=== PATIENT | male | born 1960 | race Native Hawaiian/Other Pacific Islander ===

== ENCOUNTER 2017-12-25 09:20 | Inpatient (IN) | payer OTHER ==
--- NOTE | 2017-12-25 10:09 | RAD ---
Date of service: 12/25/2017 HISTORY: SOB COMPARISON: No prior. TECHNIQUE: Chest PA and lateral FINDINGS: LUNGS: No active pulmonary disease. PLEURA: No significant pleural effusion identified. No pneumothorax apparent. CARDIOVASCULAR: Normal. OSSEOUS STRUCTURES: Degenerative changes. VISUALIZED UPPER ABDOMEN: Normal. OTHER FINDINGS: None. IMPRESSION: No active disease.
--- NOTE | 2017-12-25 10:17 | C.PDOC ---
History Of Present Illness 57 year old male patient presents to the ER for a right hernia operation for a surgery at 1300 in the OR. Patient does not have any other complaints at this time. Time Seen by Provider: 12/25/17 09:23 Chief Complaint (Nursing): Medical Clearance History Per: Patient History/Exam Limitations: no limitations Onset/Duration Of Symptoms: Hrs Current Symptoms Are (Timing): Still Present Past Medical History Reviewed: Historical Data, Nursing Documentation, Vital Signs Vital Signs: Last Vital Signs Temp 98.1 F 12/25/17 12:50 Pulse 68 12/25/17 15:30 Resp 13 12/25/17 15:30 BP 165/93 H 12/25/17 15:30 Pulse Ox 98 12/25/17 16:24 - Medical History PMH: HTN Family History: States: No Known Family Hx - Social History Hx Alcohol Use: No Hx Substance Use: No - Immunization History Hx Tetanus Toxoid Vaccination: No Hx Influenza Vaccination: No Hx Pneumococcal Vaccination: No Review Of Systems Except As Marked, All Systems Reviewed And Found Negative. Constitutional: Negative for: Fever, Chills Gastrointestinal: Positive for: Other (hernia). Negative for: Nausea, Vomiting , Abdominal Pain Physical Exam - Physical Exam Appears: Non-toxic, No Acute Distress Skin: Normal Color, Warm, Dry Head: Atraumatic, Normacephalic Eye(s): bilateral: Normal Inspection Nose: Normal Oral Mucosa: Moist Throat: Normal Neck: Normal ROM, Supple Cardiovascular: Rhythm Regular Respiratory: Normal Breath Sounds, No Rales, No Rhonchi, No Wheezing Gastrointestinal/Abdominal: Soft, No Tenderness Back: No CVA Tenderness Extremity: Normal ROM (x4) Neurological/Psych: Oriented x3, Normal Speech Gait: Steady ED Course And Treatment - Laboratory Results Result Diagrams: 12/25/17 10:20 12/25/17 10:20 Lab Interpretation: Normal ECG: Interpreted By Me ECG Rhythm: Sinus Rhythm ECG Interpretation: Normal Rate From EC O2 Sat by Pulse Oximetry: 98 (RA) Pulse Ox Interpretation: Normal - Radiology CXR: Viewed By Me, Read By Radiologist CXR Interpretation: Yes: No Acute Disease Progress Note: Labs, X-Ray, EKG ordered. admitted to [facility] for hernia surgery Reassessment Condition: Unchanged Medical Decision Making Medical Decision Making: Impression: right sided hernia Plans: -- blood work -- electrocardiogram -- x-ray of chest -- IV fluids Disposition Discussed With Dr.: Alberto Maciel Doctor Will See Patient In The: Hospital - Disposition Disposition: HOSPITALIZED Disposition Time: 12:35 Condition: STABLE - POA Present On Arrival: None - Clinical Impression Clinical Impression: Hernia - PA / RESIDENT CARE TECHNICIAN / Resident Statement MD/DO has reviewed & agrees with the documentation as recorded. - Scribe Statement The provider has reviewed the documentation as recorded by the Scribe Marybel Veloz All medical record entries made by the Scribe were at my direction and personally dictated by me. I have reviewed the chart and agree that the record accurately reflects my personal performance of the history, physical exam, medical decision making, and the department course for this patient. I have also personally directed, reviewed, and agree with the discharge instructions and disposition. Decision To Admit - Pt Status Changed To: Hospital Disposition Of: SDS- Endo,OR,Cath,IR - . Bed Request Type: Same Day Surgery Admitting Physician: Alberto Maciel Patient Diagnosis: Hernia
[2017-12-25 10:27] LABS: BASO # 0.1 K/uL (0.0-0.2); BASO % 0.6 % (0.0-2.0); EOS # 0.2 K/uL (0.0-0.7); EOS % 2.1 % (0.0-4.0); HEMOGLOBIN 14.2 g/dL (12.0-18.0); LYMPH # 2.8 K/uL (1.0-4.3); LYMPH % 25.9 % (20.0-40.0); MEAN CELL VOLUME 83.9 fL (80.0-94.0); MEAN CORPUSCULAR HGB CONC 33.4 g/dL (33.0-37.0); MONO # 0.7 K/uL (0.0-0.8); MONO % 6.4 % (0.0-10.0); NRBC % 0.1 % (0.0-2.0); RBC 5.07 Mil/uL (4.40-5.90); RED CELL DISTRIBUTION WIDTH 14.5 % (11.5-14.5); WHITE BLOOD COUNT 10.8 K/uL (4.8-10.8)
[2017-12-25 10:32] LABS: INR 1.1
[2017-12-25 10:41] LABS: ALB/GLOB RATIO 1.4 (1.0-2.1); ALBUMIN 4.4 g/dL (3.5-5.0); ALT/SGPT 29 U/L (21-72); AST/SGOT 22 U/L (17-59); BLOOD UREA NITROGEN 15 mg/dL (9-20); CALCIUM 9.5 mg/dl (8.6-10.4); GFR AFRICAN-AMERICAN > 60; GFR NON-AFRICAN AMERICAN > 60
[2017-12-25] MEDS: Sodium Chloride 0.9% 1,000 ML IV ONE (11:00)
[2017-12-25 11:15] LABS: URINE BILIRUBIN NEGATIVE (NEGATIVE); URINE BLOOD NEGATIVE (NEGATIVE); URINE CLARITY Clear (Clear); URINE COLOR Yellow (YELLOW); URINE GLUCOSE (UA) NORMAL (Normal); URINE LEUKOCYTE ESTERASE NEG Leu/uL (Negative); URINE PROTEIN NEGATIVE (NEGATIVE); URINE UROBILINOGEN NORMAL mg/dL (0.2-1.0)
[2017-12-25] MEDS ORDERED: Propofol 10 mg/ml Inj (20 ML) ONE (11:29)
[2017-12-25] MEDS ORDERED: Midazolam 2 MG/2 ML VIAL ONE (11:29)
[2017-12-25] MEDS ORDERED: Phenylephrine 10 mg/ml Inj ONE (11:31)
[2017-12-25] MEDS ORDERED: ceFAZolin 1 gm in NS 1 GM/100 ML BAG IVPB ONE (11:35)
[2017-12-25] MEDS ORDERED: Bupivacaine 0.25% 20 ML INJ IJ ONE (12:01)
[2017-12-25] MEDS ORDERED: ceFAZolin IV 1 gm in Dextrose 1 GM/50 ML BAG IVPB ONE (12:12)
[2017-12-25] MEDS ORDERED: Oxycodone/Acetaminophen 5/325 mg Tab PO PRN (13:05)
[2017-12-25] MEDS: HYDROmorphone 0.5 mg/0.5 ml ISec IVP PRN ×2 (13:35→14:55)
[2017-12-25] MEDS ORDERED: Lactated Ringer's 1,000 ML IV ONE (14:15)
[2017-12-25] MEDS ORDERED: Iodixanol 320 MG/ML 100 ML BOTTLE IV ONE (16:53)
[2017-12-25] MEDS: (Novolin R) Insulin Human Regular 100 units/ml vial SC SCH ×2 (17:36→21:54)
--- NOTE | 2017-12-25 17:49 | CT ---
PROCEDURE: CT Angiography Chest, Abdomen and Pelvis with and without intravenous contrast HISTORY: Evaluation of AAA COMPARISON: None. TECHNIQUE: Contiguous axial images of the chest, abdomen and pelvis were obtained in the phase of aortic enhancement. A noncontrast enhanced CT of the chest was also obtained to evaluate for possible intramural thrombus. Coronal and sagittal reformats were generated. IV dose administered: 100 mL Visipaque 320 Radiation dose: Total exam DLP = 868.9 mGy-cm. This CT exam was performed using one or more of the following dose reduction techniques: Automated exposure control, adjustment of the mA and/or kV according to patient size, and/or use of iterative reconstruction technique. FINDINGS: AORTA (CHEST AND ABDOMEN): Ascending aortic ectasia measuring up to 3.5 cm. Fusiform infrarenal abdominal aortic aneurysm measuring 4.7 x 4.4 cm with anterior intramural thrombus occupying approximately 40 percent of vessel lumen in cross-sectional diameter. The celiac axis, superior mesenteric artery, and the renal arteries are widely patent. Proximal segment of inferior mesenteric artery is non-opacified. The pelvic arteries are unremarkable. LUNGS: Bilateral upper lobe central of emphysema. Bilateral lower lobe atelectasis/scarring. No nodule, mass or consolidation. MEDIASTINUM: Unremarkable. Normal caliber aorta and pulmonary arterial trunk. No aortic dissection. Normal size heart. LYMPH NODES: Unremarkable. PLEURA: Unremarkable. No pneumothorax. No pleural fluid. LIVER: Unremarkable. No gross lesion or ductal dilatation. GALLBLADDER AND BILE DUCTS: Unremarkable. PANCREAS: Unremarkable. No gross lesion or ductal dilatation. SPLEEN: Unremarkable. ADRENALS: Unremarkable. No mass. KIDNEYS AND URETERS: Unremarkable. No hydronephrosis. No solid mass. VASCULATURE: Unremarkable. No aortic aneurysm. STOMACH AND BOWEL: Unremarkable. No obstruction. No gross mural thickening. APPENDIX: Normal appendix. PERITONEUM: Recent right inguinal hernia repair with postsurgical changes foci of in the right lower quadrant abdominal wall as well as in the inguinal canal. Small fat containing umbilical hernia. LYMPH NODES: Unremarkable. No enlarged lymph nodes. BLADDER: Unremarkable. REPRODUCTIVE: Unremarkable. BONES: No acute fracture. OTHER FINDINGS: None. IMPRESSION: Infrarenal abdominal aortic fusiform aneurysm measuring 4.7 x 4.4 cm with anterior intramural thrombus as described above. 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 Ascending aortic ectasia measuring up to 3.5 cm at the level of the pulmonary artery. Postsurgical changes in the right inguinal region. Additional findings as above.
--- NOTE | 2017-12-25 18:03 | CP.PCM.CON ---
History of Present Illness - History of Present Illness History of Present Illness: COMPREHENSIVE HISTORY & PHYSICAL EXAM Patient is admitted for right inguinal hernia repaired secondary to incarceration. Patient been complaining of right groin pain increased in intensity and severity associated with slight pain. Patient was evaluated by surgery outpatient and diagnosed incarcerated hernia patient is admitted for operation and mesh placement. HPI Patient has history of hypertension history of infrarenal abdominal aortic aneurysm and renal cell carcinoma which patient is going to have partial nephrectomy. PAST HIST. PERSONAL HIST: Smoking. N Alcohol. N Allergy N Travel_- . FAMILY HIST : ROS : Constitutional: Negative for weight change, chills, night sweats, fatigue and usage of assist device. Eyes: Negative for redness, swelling, itching, discharge, vision changes, blurry vision, double vision, glaucoma, cataracts, Ears: Negative for hearing loss, ringing, , tinnitus, vertigo Nose: Negative for rhinorrhea, stuffiness, sniffing, itching, postnasal drip, discoloration, nasal congestion and epistaxis. Throat: Negative for throat clearing, sore throat, hoarseness, difficulty swallowing and difficulty speaking. Respiratory: Negative for cough, , sputum production, chest tightness, wheezing, pleuritic chest pain ,daytime somnolence, chronic cough, hemoptysis, snoring at night, Cardiovascular: Negative for chest pain, palpitations, orthopnea, PND, Edema of legs, leg cramps, angina, claudication, , irregular heartbeat, Neurology: Negative for irritability, muscle weakness, numbness and tingling, seizures, tremors, migraines, slurred speech, syncope, memory loss, mood changes , recurrent headaches Gastrointestinal: Negative for difficulty swallowing, diarrhea, constipation, black stools, rectal bleeding, nausea, flatulence, reflux, poor appetite, changes in bowel habits, abdominal pain Genitourinary: Negative for frequent urination, hematuria, discharge, incontinence, urinary retention, frequent UTI, Psychiatric: Negative for depression, anxiety/panic, suicidal tendencies, Musculoskeletal: Negative for swollen joints, back pain, , neck pain, morning stiffness of joints, . Skin: Negative for rash, ulcers, itching, dry skin and pigmented lesions. P/E: Constitutional: Appears stated age and in no apparent distress. Head: Normocephalic. Ears: External ear canals patent without inflammation. Tympanic membranes intact with normal light reflex and landmark. Eyes: Pupils are central, bilaterally equal, symmetrical and reacts to light with normal movements and no icterus or pallor. Nose: External nares are patent. Mucosa is pink Mouth-Throat: Good general appearance and condition. No post-pharyngeal/oropharyngeal erythema and tonsillar hypertrophy. Good dental hygiene. Neck-Lymphatic: Neck is supple with normal ROM, no thyromegaly, lymph nodes or masses. JVD is normal with no carotid bruit. Lungs: Clear to percussion and auscultation with bilateral normal air entry. Cardiovascular: S1 and S2 are normal with no murmurs, gallops and rub. GI Exam: No hepatomegaly. Abdomen is soft and non-tender. No Organomegaly , masses or hernias are evident and bowel sounds are normal and active. Swelling in the right inguinal region reducible with pain Neurology: Higher function and all cranial nerves intact, with no gross motor or sensory deficit. Superficial and deep reflexes are normal with downwards planters. No cerebellar deficit with normal gait. Musculoskeletal: No tender spots with normal curvature of the spine with no swelling or restricted ROM of the small and large joints. Extremities: Homans sign absent. Intact pulses with no pitting edema, calf tenderness or skin color changes. Skin: No rash, eruptions or abnormal skin pigmentation LAB/RADIOLOGY: ASSESMENT : Incarcerated right inguinal hernia. Infrarenal abdominal aortic aneurysm Renal cell carcinoma PLAN: Current blood test appears normal. Will get echo for left ventricular ejection fraction prior to surgery Past Patient History - Past Social History Smoking Status: Heavy Smoker > 10 Cigarettes Daily - CARDIAC Hx Hypertension: Yes - ENDOCRINE/METABOLIC Hx Diabetes Mellitus Type 2: Yes - HEMATOLOGICAL/ONCOLOGICAL Hx Cancer: Yes (rt kidney) - PSYCHIATRIC Hx Substance Use: No - ANESTHESIA Hx Anesthesia: No Meds Allergies/Adverse Reactions: Allergies Allergy/AdvReac Type Severity Reaction Status Date / Time No Known Allergies Allergy Verified 12/25/17 09:32 - Medications Medications: Current Medications Docusate Sodium (Colace) 100 mg PO BID [facility] Glimepiride (Amaryl) 1 mg PO DAILY [facility] Sodium Chloride (Sodium Chloride 0.45%) 1,000 mls @ 80 mls/hr IV .[id number] [facility] Insulin Human Regular (Novolin R) 0 unit SC ACHS [facility] PRN Reason: Protocol Last Admin: 12/25/17 17:36 Dose: Not Given Lisinopril (Zestril) 20 mg PO DAILY [facility] Metformin HCl (Glucophage) 1,000 mg PO BIDCC [facility] Last Admin: 12/25/17 17:36 Dose: Not Given Ondansetron HCl (Zofran Inj) 4 mg IVP Q6 PRN PRN Reason: Nausea/Vomiting Oxycodone/Acetaminophen (Percocet 5/325 Mg Tab) 2 tab PO Q4H PRN PRN Reason: pain Stop: 12/28/17 13:06 Pantoprazole Sodium (Protonix Inj) 40 mg IVP DAILY [facility] Rosuvastatin Calcium (Crestor) 5 mg PO DAILY [facility] Results - Vital Signs Recent Vital Signs: Last Vital Signs Temp 97.1 F L 12/25/17 16:00 Pulse 79 12/25/17 16:00 Resp 13 12/25/17 16:00 BP 153/95 H 12/25/17 16:00 Pulse Ox 98 12/25/17 16:24 - Labs Result Diagrams: 12/26/17 07:47 12/26/17 07:47 Labs: Laboratory Results - last 24 hr 12/25/17 12/25/17 12/25/17 09:46 10:20 10:20 WBC 10.8 RBC 5.07 Hgb 14.2 Hct 42.5 MCV 83.9 MCH 28.0 MCHC 33.4 RDW 14.5 Plt Count 260 MPV 9.0 Neut % (Auto) 65.0 Lymph % (Auto) 25.9 [place] % (Auto) 6.4 Eos % (Auto) 2.1 Baso % (Auto) 0.6 Neut # (Auto) 7.0 Lymph # (Auto) 2.8 [place] # (Auto) 0.7 Eos # (Auto) 0.2 Baso # (Auto) 0.1 PT INR Sodium 143 Potassium 4.4 Chloride 104 Carbon Dioxide 25 Anion Gap 18 BUN 15 Creatinine 0.7 L Est GFR ( Amer) > 60 Est GFR (Non-Af Amer) > 60 POC Glucose (mg/dL) 113 H Random Glucose 112 H Calcium 9.5 Total Bilirubin 0.5 AST 22 ALT 29 Alkaline Phosphatase 89 Total Protein 7.5 Albumin 4.4 Globulin 3.2 Albumin/Globulin Ratio 1.4 Urine Color Urine Clarity Urine pH Ur Specific [place] Urine Protein Urine Glucose (UA) Urine Ketones Urine Blood Urine Nitrate Urine Bilirubin Urine Urobilinogen Ur Leukocyte Esterase Urine WBC (Auto) Urine RBC (Auto) Blood Type Antibody Screen 12/25/17 12/25/17 12/25/17 10:20 10:20 11:08 WBC RBC Hgb Hct MCV MCH MCHC RDW Plt Count MPV Neut % (Auto) Lymph % (Auto) [place] % (Auto) Eos % (Auto) Baso % (Auto) Neut # (Auto) Lymph # (Auto) [place] # (Auto) Eos # (Auto) Baso # (Auto) PT 12.0 INR 1.1 Sodium Potassium Chloride Carbon Dioxide Anion Gap BUN Creatinine Est GFR ( Amer) Est GFR (Non-Af Amer) POC Glucose (mg/dL) Random Glucose Calcium Total Bilirubin AST ALT Alkaline Phosphatase Total Protein Albumin Globulin Albumin/Globulin Ratio Urine Color Yellow Urine Clarity Clear Urine pH 5.0 Ur Specific [place] 1.016 Urine Protein Negative Urine Glucose (UA) Normal Urine Ketones Negative Urine Blood Negative Urine Nitrate Negative Urine Bilirubin Negative Urine Urobilinogen Normal Ur Leukocyte Esterase Neg Urine WBC (Auto) < 1 Urine RBC (Auto) < 1 Blood Type O NEGATIVE Antibody Screen Negative 12/25/17 15:13 WBC RBC Hgb Hct MCV MCH MCHC RDW Plt Count MPV Neut % (Auto) Lymph % (Auto) [place] % (Auto) Eos % (Auto) Baso % (Auto) Neut # (Auto) Lymph # (Auto) [place] # (Auto) Eos # (Auto) Baso # (Auto) PT INR Sodium Potassium Chloride Carbon Dioxide Anion Gap BUN Creatinine Est GFR ( Amer) Est GFR (Non-Af Amer) POC Glucose (mg/dL) 96 Random Glucose Calcium Total Bilirubin AST ALT Alkaline Phosphatase Total Protein Albumin Globulin Albumin/Globulin Ratio Urine Color Urine Clarity Urine pH Ur Specific [place] Urine Protein Urine Glucose (UA) Urine Ketones Urine Blood Urine Nitrate Urine Bilirubin Urine Urobilinogen Ur Leukocyte Esterase Urine WBC (Auto) Urine RBC (Auto) Blood Type Antibody Screen
[2017-12-25] MEDS: Sodium Chloride 0.45% 1,000 ML IV SCH (18:04)
[2017-12-25 23:15] VITALS: RESP 20
--- NOTE | 2017-12-26 00:26 | OP ---
PROCEDURE DATE: 12/25/2017 PREOPERATIVE DIAGNOSIS: Incarcerated right inguinal hernia. POSTOPERATIVE DIAGNOSIS: Large incarcerated right sliding inguinal hernia. PROCEDURE PERFORMED: 1. Repair of incarcerated sliding right inguinal hernia with mesh. 2. Repair of colonic wall injury. 3. Repair of the testicular artery. SURGEON: Alberto Maciel M.D. ANESTHESIA: General. BLOOD LOSS: 40 mL. POSTOPERATIVE CONDITION: Stable. INDICATIONS FOR SURGERY: This is a 57-year-old male seen in my office yesterday with an increasingly painful incarcerated right inguinal hernia. He was sent to the emergency room, admitted today and taken for an urgent hernia repair. GROSS FINDINGS: The patient had a sliding right inguinal hernia containing portion of colon and small bowel. It was incarcerated. There was no ischemia of the bowel noted, however. DESCRIPTION OF PROCEDURE: The patient was taken to the operating room, general anesthesia was administered. The right groin was prepped and draped. Larger standard right inguinal incision was made. The external oblique aponeurosis was opened. The spermatic cord along with the incarcerated hernia was looped with a Lindsay drain. The sac was found within the cord. A sliding hernia was noted and also a small bowel was noted. During dissection of the sac, an injury to the wall of bowel (colon) was noted, and a TA-30 stapler was used to repair. After the sac was completely dissected free, it was reduced and an extra large ProLoop plug was inserted into the hernia defect. Of note, there was bleeding from the spermatic cord, and an injury to the testicular artery was noted and repaired with 7-0 Prolene. Blood flow was confirmed by Doppler. The hernia plug was sutured in place with interrupted 2-0 Prolene suture. The wound was irrigated with copious amounts of saline solution. It was then closed in layers with heavy Monocryl and skin clips. The patient tolerated the procedure well. Returned to recovery room in stable condition. Alberto Maciel MD
[2017-12-26] MEDS: Sodium Chloride 0.45% 1,000 ML IV SCH ×2 (01:45→05:30)
[2017-12-26] MEDS: Sodium Chloride 0.9% 1,000 ML IV ONE (05:27)
[2017-12-26 07:40] VITALS: BP 152/86; PULSE 81; TEMP 98.8; O2SAT 95
[2017-12-26] MEDS: (Novolin R) Insulin Human Regular 100 units/ml vial SC SCH ×2 (07:44→12:16)
[2017-12-26 07:53] LABS: BASO % 0.3 % (0.0-2.0); EOS # 0.1 K/uL (0.0-0.7); EOS % 0.4 % (0.0-4.0); HEMOGLOBIN 13.6 g/dL (12.0-18.0); LYMPH # 1.3 K/uL (1.0-4.3); LYMPH % 9.4 % (20.0-40.0); MEAN CELL VOLUME 83.5 fL (80.0-94.0); MEAN CORPUSCULAR HEMOGLOBIN 28.3 pg (27.0-31.0); MEAN CORPUSCULAR HGB CONC 33.9 g/dL (33.0-37.0); MEAN PLATELET VOLUME 8.9 fL (7.2-11.7); MONO % 7.6 % (0.0-10.0); NEUT # 11.3 K/uL (1.8-7.0); NEUT % 82.3 % (50.0-75.0); PLATELET COUNT 236 K/uL (130-400); RBC 4.81 Mil/uL (4.40-5.90); WHITE BLOOD COUNT 13.8 K/uL (4.8-10.8)
[2017-12-26 08:22] LABS: ALB/GLOB RATIO 1.4 (1.0-2.1); ALT/SGPT 35 U/L (21-72); AST/SGOT 21 U/L (17-59); BLOOD UREA NITROGEN 9 mg/dL (9-20); CALCIUM 8.9 mg/dl (8.6-10.4); GFR AFRICAN-AMERICAN > 60; GFR NON-AFRICAN AMERICAN > 60
[2017-12-26 09:11] LABS: BASOPHIL 1 % (0-2); EOSINOPHIL 1 % (0-4); MONOCYTE 10 % (0-10); NEUTROPHIL 80 % (50-75); PLATELET ESTIMATE NORMAL (NORMAL); TOTAL CELLS COUNTED 100
[2017-12-26 09:12] LABS: LYMPHOCYTE 8 % (20-40)
--- NOTE | 2017-12-26 14:07 | CP.PCM.PN ---
Subjective - Date & Time of Evaluation Date of Evaluation: 12/26/17 Time of Evaluation: 14:06 - Subjective Subjective: patient is in order for inguinal hernia repair. Echocardiogram shows normal left ventricle ejection fraction. CT of the abdomen showed 4.7 x 4.4 cm infrarenal abdominal aortic aneurysm. Ascending aorta shows ectasia dilated at 3.5 cm. Continue postop care Objective - Vital Signs/Intake and Output Vital Signs (last 24 hours): Temp Pulse Resp BP Pulse Ox 98.8 F 81 20 152/86 H 95 12/26/17 07:38 12/26/17 07:38 12/26/17 07:38 12/26/17 07:38 12/26/17 07:38 Intake and Output: 12/26/17 12/26/17 11:59 23:59 Intake Total 840 Output Total 850 Balance -10 - Medications Medications: Current Medications Docusate Sodium (Colace) 100 mg PO BID [facility] Last Admin: 12/26/17 09:29 Dose: 100 mg Glimepiride (Amaryl) 1 mg PO DAILY [facility] Last Admin: 12/26/17 09:29 Dose: 1 mg Sodium Chloride (Sodium Chloride 0.45%) 1,000 mls @ 80 mls/hr IV .[id number] [facility] Last Admin: 12/26/17 05:30 Dose: 80 mls/hr Insulin Human Regular (Novolin R) 0 unit SC ACHS [facility] PRN Reason: Protocol Last Admin: 12/26/17 12:16 Dose: Not Given Lisinopril (Zestril) 20 mg PO DAILY [facility] Last Admin: 12/26/17 09:30 Dose: 20 mg Metformin HCl (Glucophage) 1,000 mg PO BIDCC [facility] Last Admin: 12/26/17 08:14 Dose: 1,000 mg Ondansetron HCl (Zofran Inj) 4 mg IVP Q6 PRN PRN Reason: Nausea/Vomiting Oxycodone/Acetaminophen (Percocet 5/325 Mg Tab) 2 tab PO Q4H PRN PRN Reason: pain Stop: 12/28/17 13:06 Last Admin: 12/25/17 20:58 Dose: 2 tab Pantoprazole Sodium (Protonix Inj) 40 mg IVP DAILY [facility] Last Admin: 12/26/17 09:30 Dose: 40 mg Rosuvastatin Calcium (Crestor) 5 mg PO DAILY [facility] Last Admin: 12/26/17 09:30 Dose: 5 mg - Labs Labs: 12/26/17 07:47 12/26/17 07:47 PT 12.0 SECONDS (9.7-12.2) 12/25/17 10:20 INR 1.1 12/25/17 10:20
--- NOTE | 2017-12-27 12:02 | CARD ---
APPROVED REPORT Date of service: 12/25/2017 EKG Measurement Heart [id number] <Conclusion> Normal sinus rhythm Normal ECG
== END 2017-12-26 14:36 | disposition home or self-care (01) | DRG 161 ==
LOC: C.ER 09:20 → C.SDS 10:30 → C.9E 13:30 → C.9S 13:40 → C.3T 16:35
PROVIDERS: ADMIT Surgery; ATTEND Surgery
PROC: 04QY0ZZ Repair Lower Artery, Open Approach (ICD-10-PCS; 2017-12-25)
PROC: 0YU50JZ Supplement Right Inguinal Region with Synthetic Substitute, Open Approach (ICD-10-PCS; principal; 2017-12-25 17:15)
DX: K40.30 Unilateral inguinal hernia, with obstruction, without gangrene, not specified as recurrent (principal); C64.1 Malignant neoplasm of right kidney, except renal pelvis; E11.9 Type 2 diabetes mellitus without complications; I10 Essential (primary) hypertension; I71.4 Abdominal aortic aneurysm, without rupture; F17.210 Nicotine dependence, cigarettes, uncomplicated